=== PATIENT | female | born 1945 | race Caucasian/White ===

== ENCOUNTER 2018-02-25 16:45 | Emergency (ER) | payer MEDICARE ==
--- NOTE | 2018-02-25 16:49 | ER Report ---
History and Physical Time Seen By MD: 16:49 (CELINA INFANTE MD) HPI/ROS 72-year-old female presents to the emergency department with 5-6 hours of ongoing nausea, vomiting, and chest pain. 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 She most recently [place] also [place]. She reports having symptoms of congestion for the past 2 days, and then this morning became acutely dizzy, weak and nauseous. Shortly after she began to vomit. She arrived to the emergency department with an acute anxiety reaction, hyperventilating and with her limbs shaking. A good amount of history was obtained from her who is at the bedside. Remainder of the history was obtained from the patient after receiving 1 mg of Ativan IV. Remainder of the 14 system rev: Yes (CELINA INFANTE MD) Allergies: Coded Allergies: No Known Drug Allergies (Unverified , 02/25/18) Home Meds Reported Medications Nifedipine (NIFEDIPINE ER) 30 Mg Tab.er.24, 30 MG PO QDAY 02/25/18 Metoprolol Tartrate (METOPROLOL TARTRATE) 25 Mg Tablet, 2 TAB PO BID, TAB 02/25/18 Baclofen (BACLOFEN) 20 Mg Tablet, 20 MG PO QDAY, #15 TAB 02/25/18 Ondansetron (ZOFRAN ODT) 4 Mg Tab.rapdis, 4 MG PO Q12H, TAB.ADALBERTO 02/25/18 Meloxicam (MELOXICAM) 15 Mg Tablet, 15 MG PO QDAY 02/25/18 Sulfasalazine (SULFASALAZINE) 500 Mg Tablet, 500 MG PO 02/25/18 Reviewed Nurses Notes: Yes Old Medical Records Reviewed: Yes (CELINA INFANTE MD) Hx Smoking: No Smoking Status: Never Smoker Exposure to Second Hand Smoke?: No Hx Substance Use Disorder: No Hx Alcohol Use: No (CELINA INFANTE MD) Family History of: HTN (CELINA INFANTE MD) Constitutional Vital Sign - Last 24 Hours 02/25/18 02/25/18 02/25/18 02/25/18 16:45 16:50 17:00 17:08 Pulse 107 99 99 Resp 30 37 B/P (MAP) 121/94 (103) 121/94 133/82 (99) Pulse Ox 99 100 99 O2 Delivery Room Air 02/25/18 02/25/18 02/25/18 02/25/18 17:15 17:30 17:45 18:00 Pulse 84 ? Resp 16 26 B/P (MAP) 145/78 (100) ???/??? (1665) Pulse Ox 99 100 02/25/18 02/25/18 02/25/18 02/25/18 18:10 18:15 18:30 18:35 Pulse 79 85 86 B/P (MAP) 153/89 (110) 130/87 (101) Pulse Ox 97 95 98 02/25/18 02/25/18 02/25/18 02/25/18 18:50 19:00 19:05 19:20 Pulse ? 86 Resp 11 B/P (MAP) 131/71 (91) Pulse Ox 96 96 02/25/18 02/25/18 19:30 19:35 Pulse 72 Resp 19 B/P (MAP) 125/70 (88) Pulse Ox 97 (MELANIA PITTMAN MD) Physical Exam General Appearance: The patient is alert, has no immediate need for airway protection and no current signs of toxicity. Eyes: Pupils equal and round no injection. Respiratory: Chest is non tender, lungs are clear to auscultation. Cardiac: regular rate and rhythm Gastrointestinal: Abdomen is soft and non tender, no masses, bowel sounds normal. Neck: Neck is supple and non tender. Extremities have full range of motion and are non tender. Skin: No rashes or lesions. DIFFERENTIAL DIAGNOSIS: After history and physical exam differential diagnosis was considered for chest pain including but not limited to myocardial ischemia, pericarditis pulmonary embolus, chest wall pain, pleural inflammation and pulmonary infectious causes. (CELINA INFANTE MD) Medical Decision Making Data Points Result Diagram: 02/25/18 1653 02/25/18 1653 Laboratory Hematology Test 02/25/18 16:53 02/25/18 18:00 02/25/18 18:39 Red Blood Count 4.68 M/uL (4.17-5.56) Mean Corpuscular Volume 93.9 fL (80.0-96.0) Mean Corpuscular Hemoglobin 32.8 pg (26.0-33.0) Mean Corpuscular Hemoglobin Concent 35.0 g/dL (32.0-36.0) Red Cell Distribution Width 13.1 % (11.5-14.5) Mean Platelet Volume 8.4 fL (7.2-11.1) Neutrophils (%) (Auto) 53.5 % (39.4-72.5) Lymphocytes (%) (Auto) 31.7 % (17.6-49.6) Monocytes (%) (Auto) 12.8 % (4.1-12.4) Eosinophils (%) (Auto) 0.9 % (0.4-6.7) Basophils (%) (Auto) 1.1 % (0.3-1.4) Nucleated RBC Relative Count (auto) 0.1 /100WBC Neutrophils # (Auto) 3.4 K/uL (2.0-7.4) Lymphocytes # (Auto) 2.0 K/uL (1.3-3.6) Monocytes # (Auto) 0.8 K/uL (0.3-1.0) Eosinophils # (Auto) 0.1 K/uL (0.0-0.5) Basophils # (Auto) 0.1 K/uL (0.0-0.1) Nucleated RBC Absolute Count (auto) 0.00 K/uL D-Dimer Quantitative (PE/DVT) 1.09 ug/ml (0-0.50) Sodium Level 140 mmol/L (137-145) Potassium Level 3.1 mmol/L (3.5-5.0) Chloride Level 106 mmol/L (98-107) Carbon Dioxide Level 16 mmol/L (22-31) Blood Urea Nitrogen 12 mg/dl (7-18) Creatinine 0.80 mg/dl (0.52-1.04) Glomerular Filtration Rate Calc > 60.0 Random Glucose 131 mg/dl (75-110) Calcium Level 9.6 mg/dl (8.4-10.2) Total Bilirubin 0.5 mg/dl (0.2-1.3) Aspartate Amino Transf (AST/SGOT) 43 U/L (0-35) Alanine Aminotransferase (ALT/SGPT) 48 U/L (0-56) Alkaline Phosphatase 76 U/L (0-126) Total Protein 4.6 g/dl (6.3-8.2) Albumin 4.7 g/dl (3.5-5.0) Urine Color Yellow Urine Clarity Clear Urine pH 7.0 pH (4.8-9.5) Urine Specific [place] 1.010 Urine Protein Negative mg/dL (NEGATIVE) Urine Glucose (UA) Negative mg/dL (NEGATIVE) Urine Ketones 20 mg/dL (NEGATIVE) Urine Blood Negative (NEGATIVE) Urine Nitrite Negative (NEGATIVE) Urine Bilirubin Negative (NEGATIVE) Urine Urobilinogen Negative mg/dL (0.2-1.9) Urine Leukocyte Esterase Small (NEGATIVE) Urine RBC None /HPF (0-2/HPF) Urine WBC 2 /HPF (0-5/HPF) Urine Squamous Epithelial Cells Many /LPF (</=FEW) Urine Bacteria Negative /HPF (NONE-FEW) Urine Mucus None /HPF (NONE-FEW) Troponin I < 0.012 ng/ml Chemistry Test 02/25/18 16:53 02/25/18 18:00 02/25/18 18:39 White Blood Count 6.3 k/uL (4.5-11.0) Red Blood Count 4.68 M/uL (4.17-5.56) Hemoglobin 15.4 g/dL (12.0-16.0) Hematocrit 43.9 % (34.0-47.0) Mean Corpuscular Volume 93.9 fL (80.0-96.0) Mean Corpuscular Hemoglobin 32.8 pg (26.0-33.0) Mean Corpuscular Hemoglobin Concent 35.0 g/dL (32.0-36.0) Red Cell Distribution Width 13.1 % (11.5-14.5) Platelet Count 318 K/uL (150-450) Mean Platelet Volume 8.4 fL (7.2-11.1) Neutrophils (%) (Auto) 53.5 % (39.4-72.5) Lymphocytes (%) (Auto) 31.7 % (17.6-49.6) Monocytes (%) (Auto) 12.8 % (4.1-12.4) Eosinophils (%) (Auto) 0.9 % (0.4-6.7) Basophils (%) (Auto) 1.1 % (0.3-1.4) Nucleated RBC Relative Count (auto) 0.1 /100WBC Neutrophils # (Auto) 3.4 K/uL (2.0-7.4) Lymphocytes # (Auto) 2.0 K/uL (1.3-3.6) Monocytes # (Auto) 0.8 K/uL (0.3-1.0) Eosinophils # (Auto) 0.1 K/uL (0.0-0.5) Basophils # (Auto) 0.1 K/uL (0.0-0.1) Nucleated RBC Absolute Count (auto) 0.00 K/uL D-Dimer Quantitative (PE/DVT) 1.09 ug/ml (0-0.50) Glomerular Filtration Rate Calc > 60.0 Calcium Level 9.6 mg/dl (8.4-10.2) Total Bilirubin 0.5 mg/dl (0.2-1.3) Aspartate Amino Transf (AST/SGOT) 43 U/L (0-35) Alanine Aminotransferase (ALT/SGPT) 48 U/L (0-56) Alkaline Phosphatase 76 U/L (0-126) Total Protein 4.6 g/dl (6.3-8.2) Albumin 4.7 g/dl (3.5-5.0) Urine Color Yellow Urine Clarity Clear Urine pH 7.0 pH (4.8-9.5) Urine Specific [place] 1.010 Urine Protein Negative mg/dL (NEGATIVE) Urine Glucose (UA) Negative mg/dL (NEGATIVE) Urine Ketones 20 mg/dL (NEGATIVE) Urine Blood Negative (NEGATIVE) Urine Nitrite Negative (NEGATIVE) Urine Bilirubin Negative (NEGATIVE) Urine Urobilinogen Negative mg/dL (0.2-1.9) Urine Leukocyte Esterase Small (NEGATIVE) Urine RBC None /HPF (0-2/HPF) Urine WBC 2 /HPF (0-5/HPF) Urine Squamous Epithelial Cells Many /LPF (</=FEW) Urine Bacteria Negative /HPF (NONE-FEW) Urine Mucus None /HPF (NONE-FEW) Troponin I < 0.012 ng/ml Coagulation Test 02/25/18 16:53 D-Dimer Quantitative (PE/DVT) 1.09 ug/ml Urinalysis Test 02/25/18 18:00 Urine Color Yellow Urine Clarity Clear Urine pH 7.0 pH (4.8-9.5) Urine Specific [place] 1.010 Urine Protein Negative mg/dL (NEGATIVE) Urine Glucose (UA) Negative mg/dL (NEGATIVE) Urine Ketones 20 mg/dL (NEGATIVE) Urine Blood Negative (NEGATIVE) Urine Nitrite Negative (NEGATIVE) Urine Bilirubin Negative (NEGATIVE) Urine Urobilinogen Negative mg/dL (0.2-1.9) Urine Leukocyte Esterase Small (NEGATIVE) Urine RBC None /HPF (0-2/HPF) Urine WBC 2 /HPF (0-5/HPF) Urine Squamous Epithelial Cells Many /LPF (</=FEW) Urine Bacteria Negative /HPF (NONE-FEW) Urine Mucus None /HPF (NONE-FEW) (MELANIA PITTMAN MD) EKG/Imaging Imaging FACILITY: [facility] [place] PATIENT NAME: Klaudia Haywood : 1945 MR: [id number] V: [id number] EXAM DATE: ORDERING PHYSICIAN: CELINA INFANTE TECHNOLOGIST: [place] [facility] [place]: [place]laud[place] : 1945 Visit/Account:[id number] Date of Sevice: 02/25/2018 CT ANGIOGRAM OF THE CHEST WITH INTRAVENOUS CONTRAST, PE PROTOCOL DATE OF EXAM: 02/25/2018 18:23 COMPARISON: Chest radiographs of the same day. INDICATION: acute sob with elevated dimer. TECHNIQUE: Contrast enhanced chest CT performed during the injection of 100 ml of Isovue-370. Three-dimensional (MIP) reconstructions were performed. FINDINGS: There is no pulmonary arterial filling defect. Thyroid: Unremarkable. Thoracic inlet: No thoracic lymphadenopathy. Heart and great vessels: Heart size is normal. Coronary atherosclerosis is noted. Mediastinum and geoff: There are a few calcified mediastinal and hilar lymph nodes likely from old granulomatous process. Lungs and pleura: 4 mm nodule posteriorly in the right lower lobe on series 4 image 160. Calcified granuloma in the right middle lobe. No effusion, consolidation, or pneumothorax. Breast and axilla: Breast tissue is unremarkable by CT. It is incompletely imaged. Bones and soft tissues: No acute osseous abnormality. Diffusely decreased bone density in the thoracic spine. Upper abdomen: Surgically absent gallbladder. High-density material posteriorly in the stomach is presumably food or medication. Moderate pancreatic atrophy. Scattered aortic atherosclerosis. IMPRESSION: Negative for pulmonary arterial embolus. One of the following dose optimization techniques was utilized in the performance of this exam: Automated exposure control; adjustment of the mA and/ or kV according to the patient's size; or use of an iterative reconstruction technique. Specific details can be referenced in the facility's radiology CT exam operational policy. Report Dictated By: Ting Johnson MD at 02/25/2018 7:32 PM Report E-Signed By: Ting Johnson MD at 02/25/2018 7:46 PM WSN:[id number] (MELANIA PITTMAN MD) ED Course/Re-evaluation ED Course Accepted care of patient at 1900. Awaiting delta troponin and CTA for PE Re-evaluation Patient feeling improved at this time. Had discussion with regard to her symptoms. Patient did state about a week ago she was at a significantly lower altitude and returned symptoms sound very much like acute sickness with headache nausea fatigue and shortness of breath. For this reason we will prescribe a course of acetazolamide for the next 72 hours. Decision to Disposition Date: Feb 25, 2018 Decision to Disposition Time: 20:11 (MELANIA PITTMAN MD) Depart Departure Latest Vital Signs Vital Signs Date Time Temp Pulse Resp B/P (MAP) Pulse Ox O2 Delivery O2 Flow Rate FiO2 02/25/18 19:35 72 19 97 02/25/18 19:30 125/70 (88) 02/25/18 16:50 Room Air (MELANIA PITTMAN MD) Impression: Primary Impression: Altitude sickness Condition: Improved Disposition: HOME OR SELF-CARE New Scripts Acetazolamide (ACETAZOLAMIDE) 250 Mg Tablet 250 MG PO Q12H for 3 Days, #6 TAB 0 Refills Prov: MELANIA PITTMAN MD 02/25/18 Departure Forms: ER Transition Record, Medications Reconciliation, Off Work/ School Form, School or Work Release?: Work Number of days to be released: 1 Patient Portal Information Patient Instructions: Mountain Sickness (GEN) Additional Instructions: Rest and drink plenty of fluids over the next few days. Take your acetazolamide as directed. Avoid any ascension to higher altitude then your current altitude for the next 72 hours. Problem Qualifiers Primary Impression: Altitude sickness Encounter type: initial encounter Qualified Codes: T70.29XA - Other effects of high altitude, initial encounter CELINA INFANTE MD Feb 25, 2018 16:49 MELANIA PITTMAN MD Feb 25, 2018 19:18
[2018-02-25] MEDS ORDERED: ONDA4TAB PO (17:08)
[2018-02-25] MEDS ORDERED: NIFE-15 PO (17:08)
[2018-02-25] MEDS ORDERED: BACL-51 PO (17:08)
[2018-02-25] MEDS ORDERED: METO25TA93 PO (17:08)
[2018-02-25] MEDS ORDERED: SULF500T48 PO (17:08)
[2018-02-25] MEDS ORDERED: MELO-207 PO (17:08)
[2018-02-25] MEDS ORDERED: LORazepam 2 MG/ML VIAL IVP ONE (17:15)
[2018-02-25] MEDS ORDERED: NS(*) 0.9% 1000 ML BAG 1,000 ML IV ONE (17:25)
[2018-02-25 17:27] LABS: PLATELET COUNT, AUTOMATED 318 K/uL (150-450)
--- NOTE | 2018-02-25 17:38 | EKG ---
FACILITY: [facility] - [place] PATIENT NAME: GARY HARO : [id number] MR: [id number] V: [id number] EXAM DATE: ORDERING PHYSICIAN: CELINA INFANTE TECHNOLOGIST: Test Reason : Blood Pressure : / mmHG Vent. Rate : 095 BPM Atrial Rate : 095 BPM P-R Int : 148 ms QRS Dur : 098 ms QT Int : 386 ms P-R-T Axes : 091 -25 093 degrees QTc Int : 485 ms Sinus rhythm with premature atrial complexes vs wandering atrial pacemaker Nonspecific ST and T wave abnormality Prolonged QT Abnormal ECG No previous ECGs available Confirmed by LARRY HOWE ([id number]) on 02/25/2018 9:41:49 PM Referred By: Confirmed By:LARRY HOWE
[2018-02-25] MEDS ORDERED: guaiFENesin 600 MG TABCR PO ONE (18:15)
--- NOTE | 2018-02-25 18:19 | RADIOLOGY IMAGING REPORT ---
FACILITY: [facility] PATIENT NAME: Klaudia Haywood : 1945 MR: [id number] V: [id number] EXAM DATE: ORDERING PHYSICIAN: CELINA INFANTE TECHNOLOGIST: Location: [facility] Patient: Klaudia Haywood : 1945 Visit/Account:[id number] Date of Sevice: 02/25/2018 2 VIEWS CHEST INDICATION: Chest pain. COMPARISON: None available FINDINGS: Cardiomediastinal silhouette and pulmonary vessels within normal limits. There is no focal infiltrate or lobar consolidation. There is no pneumothorax or pleural effusion. Calcific granuloma seen in the anterior right lower lobe. No other nodules. Upper abdomen is unremarkable. No acute bony abnormality. IMPRESSION: 1. No acute cardiopulmonary process. Report Dictated By: Octavio Erwin at 02/25/2018 6:14 PM Report E-Signed By: Octavio Erwin at 02/25/2018 6:16 PM WSN:[id number]
[2018-02-25] MEDS ORDERED: POTASSIUM CHL 20 MEQ TABCR PO ONE (18:25)
[2018-02-25] MEDS ORDERED: IOPAMIDOL 76% 100 ML INFUS BTL 100 ML ONE (18:36)
[2018-02-25] MEDS ORDERED: NS 0.9% 25 ML BAG 50 ML ONE (18:38)
[2018-02-25] MEDS ORDERED: KETOROLAC 30 MG/ML VIAL IVP ONE (18:50)
--- NOTE | 2018-02-25 19:14 | EKG ---
FACILITY: [facility] - [place] PATIENT NAME: GARY HARO : [id number] MR: [id number] V: [id number] EXAM DATE: ORDERING PHYSICIAN: CELINA INFANTE TECHNOLOGIST: YENIFER Olson Reason : Blood Pressure : / mmHG Vent. Rate : 082 BPM Atrial Rate : 082 BPM P-R Int : 154 ms QRS Dur : 098 ms QT Int : 408 ms P-R-T Axes : 079 -24 060 degrees QTc Int : 476 ms Normal sinus rhythm Normal ECG When compared with ECG of 25-FEB-2018 16:51, premature atrial complexes are no longer present vs loss of wandering atrial pacemaker Baseline artifact has resolved T wave inversion no longer evident in Lateral leads Confirmed by LARRY HOWE ([id number]) on 02/25/2018 9:48:58 PM Referred By: Confirmed By:LARRY HOWE
--- NOTE | 2018-02-25 19:50 | RADIOLOGY IMAGING REPORT ---
FACILITY: [facility] PATIENT NAME: Klaudia Haywood : 1945 MR: [id number] V: [id number] EXAM DATE: ORDERING PHYSICIAN: CELINA INFANTE TECHNOLOGIST: Location: [facility] Patient: Klaudia Haywood : 1945 Visit/Account:[id number] Date of Sevice: 02/25/2018 CT ANGIOGRAM OF THE CHEST WITH INTRAVENOUS CONTRAST, PE PROTOCOL DATE OF EXAM: 02/25/2018 18:23 COMPARISON: Chest radiographs of the same day. INDICATION: acute sob with elevated dimer. TECHNIQUE: Contrast enhanced chest CT performed during the injection of 100 ml of Isovue-370. Three- dimensional (MIP) reconstructions were performed. FINDINGS: There is no pulmonary arterial filling defect. Thyroid: Unremarkable. Thoracic inlet: No thoracic lymphadenopathy. Heart and great vessels: Heart size is normal. Coronary atherosclerosis is noted. Mediastinum and geoff: There are a few calcified mediastinal and hilar lymph nodes likely from old gr anulomatous process. Lungs and pleura: 4 mm nodule posteriorly in the right lower lobe on series 4 image 160. Calcified g ranuloma in the right middle lobe. No effusion, consolidation, or pneumothorax. Breast and axilla: Breast tissue is unremarkable by CT. It is incompletely imaged. Bones and soft tissues: No acute osseous abnormality. Diffusely decreased bone density in the thorac ic spine. Upper abdomen: Surgically absent gallbladder. High-density material posteriorly in the stomach is pre sumably food or medication. Moderate pancreatic atrophy. Scattered aortic atherosclerosis. IMPRESSION: Negative for pulmonary arterial embolus. One of the following dose optimization techniques was utilized in the performance of this exam: Autom ated exposure control; adjustment of the mA and/or kV according to the patient's size; or use of an i terative reconstruction technique. Specific details can be referenced in the facility's radiology C T exam operational policy. Report Dictated By: Ting Johnson MD at 02/25/2018 7:32 PM Report E-Signed By: Ting Johnson MD at 02/25/2018 7:46 PM WSN:[id number]
[2018-02-25] MEDS ORDERED: ACET250T19 PO (20:09)
[2018-02-25] MEDS ORDERED: acetaZOLAMIDE 250 MG TAB PO ONE (20:15)
[2018-02-25 20:18] VITALS: BP 138/82
== END 2018-02-25 20:30 | disposition home or self-care (01) ==
LOC: ER 16:54
DX: T70.29XA Other effects of high altitude, initial encounter (principal)
CPT/HCPCS: 71046; 71275; 81001; 84484; 85025; 85379; 93005; 96361; 96374; 96375; 99284; A9270; J1885; J2060; J7030; Q9967; 82040; 82247; 82310; 82374; 82435; 82565; 82947; 84075; 84132; 84155; 84295; 84450; 84460; 84520

== ENCOUNTER 2018-04-16 11:16 | Emergency (ER) | payer MEDICARE ==
[~2018-04-16 11:16] MED LIST: ACET250T19 PO; BACL-51 PO; MELO-207 PO; METO25TA93 PO; NIFE-15 PO; ONDA4TAB PO; SULF500T48 PO
--- NOTE | 2018-04-16 11:27 | ER Report ---
History and Physical Time Seen By MD: 11:27 HPI/ROS CHIEF COMPLAINT: Vaginal wall prolapse HISTORY OF PRESENT ILLNESS: This is a 72-year-old female presents to the emergency department for concerns of a vaginal wall prolapse. Patient states that about 8 months ago, she saw her [facility] in [place] for concerns of a vaginal prolapse, no surgery was performed, they tried conservative treatment such as acute exercises, patient states that his worked moderately okay since then. He would have an occasional vaginal prolapse, with no pain. Then about 3 days ago she states that she had a large vaginal wall prolapse was painful and uncomfortable, then it began to resolve however she felt that she had a rectal prolapse as well secondary to the vaginal wall prolapse. Began to improve 2 days ago and yesterday much improved and she woke this morning with significant pain in the vaginal area and that she states the vaginal wall was hanging out. She also noted that she had an area that felt like it was protruding from the rectum as well. As the [facility] did tell her that the rectum was involved. Patient decided to come in for evaluation. No fevers or chills. No chest pain or shortness of breath. No headaches. REVIEW OF SYSTEMS: Constitutional: No fever, no chills. Eyes: No discharge. ENT: No sore throat. Cardiovascular: No chest pain, no palpitations. Respiratory: No cough, no shortness of breath. Gastrointestinal: As above. Genitourinary: As above. Musculoskeletal: No back pain. Skin: No rashes. Neurological: No headache. Allergies: Coded Allergies: adhesive tape (Verified Allergy, Mild, RASH, 04/16/18) Home Meds Active Scripts Acetazolamide (ACETAZOLAMIDE) 250 Mg Tablet, 250 MG PO Q12H for 3 Days, #6 TAB 0 Refills Prov:MELANIA PITTMAN MD 02/25/18 Reported Medications Nifedipine (NIFEDIPINE ER) 30 Mg Tab.er.24, 30 MG PO QDAY 02/25/18 Metoprolol Tartrate (METOPROLOL TARTRATE) 25 Mg Tablet, 2 TAB PO BID, TAB 02/25/18 Baclofen (BACLOFEN) 20 Mg Tablet, 20 MG PO QDAY, #15 TAB 02/25/18 Ondansetron (ZOFRAN ODT) 4 Mg Tab.rapdis, 4 MG PO Q12H, TAB.ADALBERTO 02/25/18 Meloxicam (MELOXICAM) 15 Mg Tablet, 15 MG PO QDAY 02/25/18 Sulfasalazine (SULFASALAZINE) 500 Mg Tablet, 500 MG PO 02/25/18 Past Medical/Surgical History The patient has a past medical and surgical history of A. fib, low blood pressure, IBS, "scarred lungs", urinary tract infections, vaginal hernia, Bee seal, wears glasses, goiter, tubal ligation, melanoma surgery 2 to the left upper arm. Reviewed Nurses Notes: Yes Hx Smoking: No Smoking Status: Never Smoker Exposure to Second Hand Smoke?: No Hx Substance Use Disorder: No Hx Alcohol Use: No Constitutional Vital Sign - Last 24 Hours 04/16/18 04/16/18 04/16/18 04/16/18 11:16 11:21 11:25 11:25 Temp 97.8 Pulse ? 72 Resp 16 B/P (MAP) 122/95 (104) 122/95 Pulse Ox 94 O2 Delivery Room Air 04/16/18 04/16/18 04/16/18 04/16/18 11:26 11:30 11:36 11:41 Pulse 79 68 71 B/P (MAP) 113/71 (85) Pulse Ox 93 92 92 O2 Delivery Room Air Room Air Room Air 04/16/18 04/16/18 04/16/18 04/16/18 11:46 11:51 12:00 12:01 Pulse 75 72 68 B/P (MAP) 121/67 (85) Pulse Ox 92 90 89 O2 Delivery Room Air Room Air Room Air 04/16/18 04/16/18 04/16/18 04/16/18 12:06 12:11 12:16 12:21 Pulse 65 67 60 Pulse Ox 96 94 98 96 O2 Delivery Nasal Cannula Nasal Cannula Nasal Cannula Nasal Cannula O2 Flow Rate 2 2 2 2 04/16/18 04/16/18 04/16/18 04/16/18 12:26 12:31 12:36 12:41 Pulse 66 62 62 61 Pulse Ox 98 94 96 96 O2 Delivery Nasal Cannula O2 Flow Rate 2 04/16/18 04/16/18 04/16/18 04/16/18 12:46 12:51 12:56 13:00 Pulse 60 58 61 B/P (MAP) 127/82 (97) Pulse Ox 96 97 96 04/16/18 04/16/18 04/16/18 04/16/18 13:01 13:06 13:16 13:21 Pulse ??? 58 60 59 Pulse Ox 99 100 100 04/16/18 04/16/18 04/16/18 04/16/18 13:26 13:30 13:31 13:36 Pulse 57 56 52 B/P (MAP) 103/73 (83) Pulse Ox 100 100 100 04/16/18 04/16/18 14:00 14:06 Pulse 57 B/P (MAP) 126/42 (70) Pulse Ox 98 Physical Exam General Appearance: The patient is alert, has no immediate need for airway protection and no signs of toxicity. Eyes: Pupils equal and round no pallor or injection. ENT, Mouth: Mucous membranes are moist. Respiratory: There are no retractions, lungs are clear to auscultation. Cardiovascular: Regular rate and rhythm. Gastrointestinal: Abdomen is soft and non tender, no masses, bowel sounds normal. There is a large, what appears to be a left sided thrombosed hemorrhoid, extending from the 12-6 o'clock position. Not actively bleeding. [facility]: No abnormalities noted on external genitalia exam, no vaginal or uterine prolapse. Neurological: Alert and oriented 4. Moving all external days. Following all commands. No focal neuro deficits. Skin: Warm and dry, no rashes. Musculoskeletal: Neck is supple non tender. Extremities are nontender, nonswollen and have full range of motion. DIFFERENTIAL DIAGNOSIS: After history and physical exam differential diagnosis was considered for vaginal prolapse, uterine prolapse, rectal prolapse, hemorrhoids tumor, fibroids and trauma. Medical Decision Making Data Points Laboratory Hematology Test 04/16/18 11:58 Urine Color Alyssa Urine Clarity Slightly-cloudy Urine pH 5.0 pH (4.8-9.5) Urine Specific [place] 1.030 Urine Protein Negative mg/dL (NEGATIVE) Urine Glucose (UA) Negative mg/dL (NEGATIVE) Urine Ketones Trace mg/dL (NEGATIVE) Urine Blood Negative (NEGATIVE) Urine Nitrite Negative (NEGATIVE) Urine Bilirubin Negative (NEGATIVE) Urine Urobilinogen 2.0 mg/dL (0.2-1.9) Urine Leukocyte Esterase Negative (NEGATIVE) Urine RBC 2 /HPF (0-2/HPF) Urine WBC 2 /HPF (0-5/HPF) Urine Squamous Epithelial Cells Many /LPF (NONE-FEW) Urine Bacteria Negative /HPF (NONE-FEW) Urine Mucus Few /HPF (NONE-FEW) Chemistry Test 04/16/18 11:58 Urine Color Alyssa Urine Clarity Slightly-cloudy Urine pH 5.0 pH (4.8-9.5) Urine Specific [place] 1.030 Urine Protein Negative mg/dL (NEGATIVE) Urine Glucose (UA) Negative mg/dL (NEGATIVE) Urine Ketones Trace mg/dL (NEGATIVE) Urine Blood Negative (NEGATIVE) Urine Nitrite Negative (NEGATIVE) Urine Bilirubin Negative (NEGATIVE) Urine Urobilinogen 2.0 mg/dL (0.2-1.9) Urine Leukocyte Esterase Negative (NEGATIVE) Urine RBC 2 /HPF (0-2/HPF) Urine WBC 2 /HPF (0-5/HPF) Urine Squamous Epithelial Cells Many /LPF (NONE-FEW) Urine Bacteria Negative /HPF (NONE-FEW) Urine Mucus Few /HPF (NONE-FEW) Urinalysis Test 04/16/18 11:58 Urine Color Alyssa Urine Clarity Slightly-cloudy Urine pH 5.0 pH (4.8-9.5) Urine Specific [place] 1.030 Urine Protein Negative mg/dL (NEGATIVE) Urine Glucose (UA) Negative mg/dL (NEGATIVE) Urine Ketones Trace mg/dL (NEGATIVE) Urine Blood Negative (NEGATIVE) Urine Nitrite Negative (NEGATIVE) Urine Bilirubin Negative (NEGATIVE) Urine Urobilinogen 2.0 mg/dL (0.2-1.9) Urine Leukocyte Esterase Negative (NEGATIVE) Urine RBC 2 /HPF (0-2/HPF) Urine WBC 2 /HPF (0-5/HPF) Urine Squamous Epithelial Cells Many /LPF (NONE-FEW) Urine Bacteria Negative /HPF (NONE-FEW) Urine Mucus Few /HPF (NONE-FEW) EKG/Imaging Imaging TRANSVAGINAL NON-OB HISTORY: evaluate for prolapse, anal bleeding TECHNIQUE: Transvaginal ultrasound pelvis. COMPARISON: None. FINDINGS: Uterus: Retroverted; 5.3 cm length x 2.7 cm AP x 3.5 cm transverse. Myometrium: Unremarkable. Endometrium: Grossly unremarkable; double thickness 4.2 mm. Along the lower uterine segment towards the right there was a shadowing echogenic region measuring approximately 9 mm in diameter this may be related to a fibroid Cervix: Nabothian cysts. Ovaries: Right - not visualized Left - not visualized Adnexa: Grossly unremarkable. Free pelvic fluid: None. There is no gross evidence of uterine prolapse IMPRESSION: Limited study although no gross evidence of uterine prolapse There is a 9 mm calcification anteriorly along the lower uterine segment which may represent a fibroid Report Dictated By: Jessy Andrew MD at 04/16/2018 1:49 PM Report E-Signed By: Jessy Andrew MD at 04/16/2018 1:53 PM WSN:CHRIS ED Course/Re-evaluation ED Course The patient was admitted to a room. History and physical were obtained. Differential diagnoses were considered. I did speak with Dr. Emmanuel as noted below. A pelvic exam did not reveal a prolapsed uterus, vaginal billings were intact, no prolapse that was visualized, I also spoke with Dr. Freed regarding the hemorrhoid, as the patient has had the hemorrhoid for at least 3 days or more, not recommended to remove the clot, the patient and I discussed this at length, she will try home remedies and will follow-up with Dr. Corrales next week to address the vaginal wall prolapse. Pelvic ultrasound showing a 9 mm calcification anteriorly along the lower uterine segment which may represent a fibroid, no prolapse on ultrasound. The patient was discharged home. Patient had no other questions or concerns at this time. Will return to the ER for any other concerns or worsening symptoms. Pelvic exam: The vulva The vagina did not have significant discharge. The cervix was closed no bleeding and no purulent drainage. The uterus was normal size and non tender. The exam was performed with a instructor decorating. 04/16/2018 12:40:25 pm I did speak with Dr. Emmanuel regarding the patient's case, she felt that as long as no exposed vaginal tissue present, and nonsignificant white tender could have the patient follow-up early next week with Dr. Corrales. I also spoke with Dr. Freed regarding the hemorroid, he did indicate if the external hemorrhoid has been present for 3 days or more then it's advised not to removed the clot, and let it resolve on it's own. I discussed these with the patient. Decision to Disposition Date: Apr 16, 2018 Decision to Disposition Time: 14:14 Depart Departure Latest Vital Signs Vital Signs Date Time Temp Pulse Resp B/P (MAP) Pulse Ox O2 Delivery O2 Flow Rate FiO2 04/16/18 14:06 57 98 04/16/18 14:00 126/42 (70) 04/16/18 12:26 Nasal Cannula 2 04/16/18 11:25 97.8 16 Impression: Primary Impression: Vaginal wall prolapse without uterine prolapse Additional Impression: Hemorrhoid Condition: Improved Disposition: HOME OR SELF-CARE Patient Instructions: Hemorrhoids (ED), Thrombosed Hemorrhoid (ED) Additional Instructions: We have scheduled an appointment with Dr. Corrales, [facility] for next Thursday. If anything become worse before your appointment next week, please return to the ED for reevaluation. Drink plenty of water. Continue with a well rounded diet to prevent constipation as this may increase the size of the hemorrhoid. Typically the hemorroids resolve on their own, they do take time. You can try Tucks medicated pads to help with the discomfort. Ibuprofen or Tylenol as needed. Problem Qualifiers Additional Impression: Hemorrhoid Hemorrhoid type: unspecified Qualified Codes: K64.9 - Unspecified hemorrhoids SERGIO MASONP-DEMIAN Apr 16, 2018 11:27
--- NOTE | 2018-04-16 13:58 | RADIOLOGY IMAGING REPORT ---
FACILITY: [facility] - [place] PATIENT NAME: Klaudia Haywood : 1945 MR: [id number] V: [id number] EXAM DATE: ORDERING PHYSICIAN: SERGIO MASON TECHNOLOGIST: Location: [facility] - [place] Patient: Klaudia Haywood : 1945 Visit/Account:[id number] Date of Sevice: 04/16/2018 TRANSVAGINAL NON-OB HISTORY: evaluate for prolapse, anal bleeding TECHNIQUE: Transvaginal ultrasound pelvis. COMPARISON: None. FINDINGS: Uterus: Retroverted; 5.3 cm length x 2.7 cm AP x 3.5 cm transverse. Myometrium: Unremarkable. Endometrium: Grossly unremarkable; double thickness 4.2 mm. Along the lower uterine segment towards the right there was a shadowing echogenic region measuring approximately 9 mm in diameter this may be related to a fibroid Cervix: Nabothian cysts. Ovaries: Right - not visualized Left - not visualized Adnexa: Grossly unremarkable. Free pelvic fluid: None. There is no gross evidence of uterine prolapse IMPRESSION: Limited study although no gross evidence of uterine prolapse There is a 9 mm calcification anteriorly along the lower uterine segment which may represent a fibroi d Report Dictated By: Jessy Andrew MD at 04/16/2018 1:49 PM Report E-Signed By: Jessy Andrew MD at 04/16/2018 1:53 PM WSN:[email or web address]
[2018-04-16 14:00] VITALS: BP 126/42
== END 2018-04-16 14:24 | disposition home or self-care (01) ==
LOC: ER 11:22
DX: N81.10 Cystocele, unspecified (principal); K64.9 Unspecified hemorrhoids
CPT/HCPCS: 76830; 81001; 99284; A4353